=== PATIENT | female | born 1955 ===

== ENCOUNTER → 2021-07-21 | Outpatient (CLI) | payer OTHER ==
--- NOTE | 2021-07-29 11:26 | RAD ---
Digital bilateral screening mammogram dated 07/21/2021. INDICATION: 66 years of age asymptomatic female patient presents for screening mammography. Screening TECHNIQUE: Digital MLO and cc views obtained. No tomography obtained. COMPARISON: None available patient reportedly has had prior mammograms performed at [place], however thes e have still yet to arrive.. BREAST COMPOSITION: Category B: There are scattered fibroglandular densities. FINDINGS: Vague nodular density in the subareolar left breast measures about 8 to 9 mm and is located about 2.6 cm behind the nipple. This is best seen on the CC view and may correlate with some increased density in the upper aspect of the left breast on the MLO view. There are scattered benign-appearing calcifi cations. No suspicious mass or architectural distortion on the right. IMPRESSION: Possible nodular density at the 12:00 left breast. If the patient's prior mammograms arri ve, an addendum to this report can be made. RECOMMENDATION: Spot compression MLO and cc views and straight ML view with possible ultrasound follo w-up. BIRADS 0: INCOMPLETE - NEED ADDITIONAL IMAGING EVALUATION AND/OR PRIOR MAMMOGRAMS FOR COMPARISON. This study was interpreted with the benefit of Computerized Aided Detection (CAD). Mammography is the most sensitive method for finding small breast cancers, but it does not detect the m all and is not a substitute for careful clinical examination. A negative mammogram does not negate a clinically suspicious finding and should not result in delay in biopsying a clinically suspicious a bnormality. "Our facility is accredited by the [employer] Mammography Program." Electronically signed by: Fei Aguayo MD (07/29/2021 11:23 AM) [id number]
== END ==
LOC: MAMMO 10:50
PROVIDERS: ATTEND Family Medicine
DX: Z12.31 Encounter for screening mammogram for malignant neoplasm of breast (principal)
CPT/HCPCS: 77067